=== PATIENT | female | born 1970 | race Caucasian/White ===

== ENCOUNTER 2019-06-12 09:59 | Outpatient (CLI) | payer OTHER | END 2019-06-12 10:22 | disposition home or self-care (01) | LOC: LAB 09:59 | DX: E04.2 Nontoxic multinodular goiter (principal); D50.8 Other iron deficiency anemias; D51.8 Other vitamin B12 deficiency anemias; I10 Essential (primary) hypertension; E50.8 Other manifestations of vitamin A deficiency; E03.8 Other specified hypothyroidism; E06.3 Autoimmune thyroiditis; D51.1 Vitamin B12 deficiency anemia due to selective vitamin B12 malabsorption with proteinuria; D51.0 Vitamin B12 deficiency anemia due to intrinsic factor deficiency ==